=== PATIENT | female | born 1965 | race Native Hawaiian/Other Pacific Islander ===

== ENCOUNTER → 2017-12-05 | Outpatient (CLI) | payer OTHER ==
--- NOTE | 2017-12-05 07:47 | US ---
EXAMINATION TYPE: US kidneys/renal and bladder DATE OF EXAM: 12/05/2017 COMPARISON: NONE CLINICAL HISTORY: R31.9 Hematuria. Difficult exam due to patient body habitus EXAM MEASUREMENTS: Right Kidney: 11.5 x 4.9 x 5.5 cm Left Kidney: 11.6 x 5.8 x 5.6 cm Right Kidney: No hydronephrosis or masses seen Left Kidney: No hydronephrosis or masses seen Bladder: wnl Bilateral Jets seen: Yes There is no evidence for hydronephrosis at this point in time. No nephrolithiasis is seen. No caty s are identified. The urinary bladder is anechoic. Bilateral ureteral jets are seen. IMPRESSION: Exam is slightly suboptimal due to patient body habitus. No gross evidence of hydronephrosis or nephr olithiasis bilaterally.
== END | disposition home or self-care (01) ==
LOC: RADUSWWP 06:58
PROVIDERS: ATTEND Internal Medicine
DX: R31.9 Hematuria, unspecified (principal)
CPT/HCPCS: 76770

== ENCOUNTER → 2018-04-29 | Outpatient (CLI) | payer OTHER ==
--- NOTE | 2018-04-29 09:10 | US ---
EXAMINATION TYPE: US liver DATE OF EXAM: 04/29/2018 COMPARISON: Renal ultrasound December 05, 2017 CLINICAL HISTORY: R94.5 Abnormal liver function test. Elevated LFT's EXAM MEASUREMENTS: Liver Length: 21.1 cm Gallbladder Wall: 0.2 cm CBD: 0.4 cm Right Kidney: 11.1 x 4.9 x 5.4 cm Large pt body habitus Pancreas: wnl, tail obscured by overlying bowel gas Liver: Enlarged, heterogeneous, difficult to penetrate Gallbladder: No stones seen Evidence for sonographic Sutherland's sign: No CBD: wnl Right Kidney: wnl Heterogeneous hyperechoic appearance of liver is identified which is seen adjacent to right kidney on prior ultrasound. Evaluation for focal masses is suboptimal due to the heterogeneity. No ductal dila tation is seen. Gallbladder is seen without shadowing mobile gallstones. No pericholecystic fluid or abnormal gallbladder wall thickening is noted IMPRESSION: Heterogeneous hyperechoic appearance of liver is likely on basis of diffuse fatty infiltr ation, product of underlying hepatocellular disease is not excluded. Imaging guided random biopsy for tissue analysis can be performed if desired.
== END | disposition home or self-care (01) ==
LOC: RADUSWWP 07:29
PROVIDERS: ATTEND Internal Medicine
DX: R93.2 Abnormal findings on diagnostic imaging of liver and biliary tract (principal); R79.89 Other specified abnormal findings of blood chemistry
CPT/HCPCS: 76705

== ENCOUNTER → 2018-05-11 | Outpatient (CLI) | payer OTHER ==
--- NOTE | 2018-05-11 10:45 | CT ---
EXAMINATION TYPE: CT urogram wo/w con DATE OF EXAM: 05/11/2018 HISTORY: Microscopic hematuria with Left sided flank pain CT DLP: 4340.5mGycm Automated Exposure Control for Dose Reduction was Utilized. CONTRAST: CT scan of the abdomen and pelvis is performed without and with IV Contrast, patient injected with 10 0 mL of Isovue 370. Three-D imaging of the collecting system was obtained for interpretation and perf ormed at a separate workstation. COMPARISON: None. FINDINGS: Motion artifact is seen on the delayed images slightly limiting interpretation. LUNG BASES: Right diaphragmatic rent is incidentally seen. Lung bases are otherwise unremarkable.. LIVER/GB: Hepatic parenchyma is diffusely hypoattenuated in comparison to that of the spleen, most co mmonly seen in hepatic steatosis. This finding limits evaluation for hepatic masses. No gross evidenc e of hepatic mass is seen. No intrahepatic biliary ductal dilatation. No cholelithiasis. PANCREAS: No significant abnormality is seen. SPLEEN: No significant abnormality is seen. ADRENALS: There is slight thickening of the adrenal glands, left greater than right without focal nod ularity. Adrenal glands maintain a normal adreniform shape and therefore findings are suspected to re late to adrenal gland hyperplasia, benign finding.. KIDNEYS: The kidneys enhance and excrete symmetrically without hydronephrosis. No nephrolithiasis is seen on the unenhanced images. No uroepithelial thickening is seen or ureteral filling defect. No ure teral stricture is identified. Very subtle and questionable focal right paracentral posterior urinary bladder wall thickening is seen on delayed axial image 59 measuring up to 3 mm. This does not persis t on sagittal on coronal reformats although there is some motion artifact seen. BOWEL: Few sigmoid colonic diverticula are noted. There is a very small hiatal hernia. No dilated lar ge or small bowel. LYMPH NODES: No greater than 1cm abdominal or pelvic lymph nodes are appreciated. OSSEOUS STRUCTURES: Mild multilevel degenerative changes of the spine are noted. OTHER: Very small fat filled umbilical hernia is noted. IMPRESSION: 1. 3 mm focal area of questionable right paracentral dependent urinary bladder wall thickening. Ultra sound could assess for persistence or flow to this region as well as assess for mobility. Alternative ly direct visualization could be performed. 2. No focal renal mass, nephrolithiasis or hydronephrosis. No ureteral stricture or filling defect. 3. Colonic diverticulosis without evidence of acute diverticulitis. 4. Hepatic steatosis.
== END ==
LOC: RADCTMAIN 06:50
PROVIDERS: ATTEND Urology
DX: K57.30 Diverticulosis of large intestine without perforation or abscess without bleeding (principal); K76.0 Fatty (change of) liver, not elsewhere classified
CPT/HCPCS: 74178; 74400; Q9967